=== PATIENT | male | born 1995 | race African-American/Black ===

== ENCOUNTER 2018-01-27 17:05 | Emergency (ER) | payer OTHER ==
[2018-01-27] MEDS ORDERED: Ketorolac INJ* 60 MG/2 ML VIAL IM ONE (18:37)
[2018-01-27] MEDS ORDERED: Cyclobenzaprine TAB* 10 MG PO ONE (18:37)
--- NOTE | 2018-01-27 18:37 | UC ---
UC General HPI - HPI Summary HPI Summary: Patient states that he awoke this morning with some pain in left side of his neck radiating into his left upper back. It's been getting progressively worse. He denies any history of injury. He has no numbness tingling or weakness to his arms. He has no associated chest pain or short of breath. - History of Current Complaint Chief Complaint: UCBackPain Stated Complaint: BACK/NECK PAIN Time Seen by Provider: 01/27/18 18:30 Timing: Constant Pain Intensity: 4 Alleviating: TURNING HEAD Associated Signs & Symptoms: Negative: Cough, Chest Pain, Fever - Allergy/Home Medications Allergies/Adverse Reactions: Allergies Allergy/AdvReac Type Severity Reaction Status Date / Time seasonal Allergy Congestion Uncoded 01/27/18 18:06 PMH/Surg Hx/FS Hx/Imm Hx Previously Healthy: Yes - Surgical History Surgical History: None - Family History Known Family History: Positive: None - Social History Occupation: Student Lives: Dormitory/Roommates Alcohol Use: Weekly Alcohol Amount: one bottle wine on weekends Substance Use Type: None Smoking Status (MU): Never Smoked Tobacco - Immunization History Vaccination Up to Date: Yes Review of Systems Constitutional: Negative Skin: Negative Eyes: Negative ENT: Negative Respiratory: Negative Cardiovascular: Negative Gastrointestinal: Negative Genitourinary: Negative Motor: Negative Neurovascular: Negative Musculoskeletal: Other: - L NECK PAIN Neurological: Negative Psychological: Negative Is Patient Immunocompromised?: No All Other Systems Reviewed And Are Negative: Yes Physical Exam Triage Information Reviewed: Yes Appearance: Well-Appearing Vital Signs: Initial Vital Signs Temp 98 F 01/27/18 17:55 Pulse 58 01/27/18 17:55 Resp 18 01/27/18 17:55 BP 132/71 01/27/18 17:55 Pulse Ox 97 01/27/18 17:55 Vital Signs Reviewed: Yes Eyes: Positive: Conjunctiva Clear ENT: Positive: Pharynx normal, TMs normal. Negative: Nasal congestion, Nasal drainage Neck: Positive: Supple, No Lymphadenopathy, Other: - Left side of the patient's trapezius muscle has spasm or localized tenderness.. Negative: Nuchal Rigidity Respiratory: Positive: Lungs clear, Normal breath sounds Cardiovascular: Positive: RRR, No Murmur Abdomen Description: Positive: Nontender, No Organomegaly, Soft Bowel Sounds: Positive: Present Musculoskeletal: Positive: Other: - Cervical, thoracic and lumbar spine are without deformity or tenderness and have full range of motion. Sensory vascular motor is intact 4. Neurological: Positive: Alert Psychological: Positive: Age Appropriate Behavior Skin Exam: Normal Skin: Negative: rashes Re-Evaluation - Re-Evaluation First Eval Re-Evaluation Time: 19:00 Change: Improved - NOTES LESS DISCOMFORT. Course/Dx - Differential Dx - Multi-Symptom Provider Diagnoses: Trapezius muscle spasm Discharge - Sign-Out/Discharge Documenting (check all that apply): Patient Departure All imaging exams completed and their final reports reviewed: No Studies - Discharge Plan Condition: Stable Disposition: HOME Prescriptions: Cyclobenzaprine TAB* [Flexeril 10 MG TAB*] 10 mg PO TID PRN #10 tab PRN Reason: Spasms - Muscle Naproxen [Naprosyn 500 mg tab] 500 mg PO BID 5 Days #10 tablet Patient Education Materials: Muscle Strain (ED) Referrals: [facility] [Outside] - 5 Days - Billing Disposition and Condition Condition: STABLE Disposition: Home
== END 2018-01-27 19:09 | disposition home or self-care (01) ==
LOC: UCCORT 17:05
DX: M62.838 Other muscle spasm (principal); J30.2 Other seasonal allergic rhinitis
CPT/HCPCS: 96372; 99202; A9270-GY; G0463; J1885